=== PATIENT | male | born 1955 | race Caucasian/White ===

== ENCOUNTER 2023-07-15 12:19 | Emergency (ER) | payer BC, SELFPAY ==
[2023-07-15] VITALS (41 sets, daily range): BP systolic 132–174; BP diastolic 75–100; PULSE 70–76; RESP 20; TEMP 36.8; O2SAT 94–97; BMI 39.1
--- NOTE | 2023-07-15 12:36 | CRLHL7_ITS ---
For Patients: As a result of the Cures Act, medical imaging exams and procedure reports are released immediately into your electronic medical record. You may view this report before your referring provider. If you have questions, please contact your health care provider. INDICATION: CHEST PAIN INDICATION: Chest pain. TECHNIQUE: Chest 2 views. COMPARISON: None FINDINGS: Cardiovascular and mediastinum: Heart size and vasculature are normal in caliber and appearance. Mediastinum is within normal limits. Lungs and pleural spaces: Lungs are clear. No sign of infiltrate or mass. No sign of pleural effusion. No pneumothorax. 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 IMPRESSION: Lungs are clear. Dictated by Skyler Valenzuela MD @ 07/15/2023 1:16:10 PM Dictated by: Skyler Valenzuela MD @ 07/15/2023 13:16:19 (Electronically Signed)
--- NOTE | 2023-07-15 12:45 | ED.CHESTPAIN ---
HPI - Chest Pain General Date Seen: 07/15/23 Chief Complaint: Chest Pain Stated Complaint: Chest pain Time Seen by Provider: 07/15/23 12:20 Source: patient Mode of arrival: ambulatory Limitations: no limitations History of Present Illness HPI narrative: Patient is a 68-year-old gentleman who presents here with a 12 hour history of anterior chest discomfort with radiation to his left shoulder left arm, this could woke him up from sleep, he told his boss, who brought him here to the emergency room, he reports in the last 45 minutes he has would drastically improved, before it was a pressure sensation that is basically gotten better. He has no shortness of breath, no radiation to his back. He did take 2 325 mg of aspirin, about 45 minutes ago. No pre-existing history of coronary artery disease but he has lots of risk factors including diabetes, hypertension, obesity, associated with this. Previous history of smoking but does not currently smoke. 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 MD complaint: chest pain Pertinent past history: other (WPW with ablation ) Onset (ago): hour(s) Treatment prior to arrival: none Risk Factors Coronary artery disease risk factors: diabetes, smoking history, hyperlipidemia and hypertension Thoracic aortic dissection risk factors: none Related Data Home Medications Medication Instructions Recorded Confirmed amlodipine 10 mg tablet 10 mg PO DAILY 07/15/23 07/15/23 aspirin 81 mg capsule 81 mg PO DAILY 07/15/23 07/15/23 dapagliflozin propaned 5 1 tab PO DAILY 07/15/23 07/15/23 mg-metformin ER 1,000 mg tablet, ext rel 24hr (Xigduo XR) gabapentin 400 mg capsule 400 mg PO TID 07/15/23 07/15/23 glimepiride 1 mg tablet 1 mg PO DAILY 07/15/23 07/15/23 hydrochlorothiazide 25 mg tablet 25 mg PO DAILY 07/15/23 07/15/23 loratadine 10 mg tablet 10 mg PO DAILY 07/15/23 07/15/23 (Allerclear) losartan 100 mg tablet 100 mg PO DAILY 07/15/23 07/15/23 metformin 500 mg tablet 500 mg PO BID 07/15/23 07/15/23 metoprolol succinate 100 mg 100 mg PO DAILY 07/15/23 07/15/23 capsule sprinkle, ext. release 24 hr naproxen sodium 220 mg capsule 220 mg PO BID PRN 07/15/23 07/15/23 (Aleve) pantoprazole 40 mg tablet,delayed 40 mg PO QAM 07/15/23 07/15/23 release propafenone 150 mg tablet 150 mg PO TID 07/15/23 07/15/23 semaglutide 0.25 mg or 0.5 mg (2 0.25 mg subcut QWEEK 07/15/23 07/15/23 mg/3 mL) subcutaneous pen injector ([employer]) Allergies Allergy/AdvReac Type Severity Reaction Status Date / Time ibuprofen AdvReac Verified 07/15/23 12:26 Review of Systems Status of ROS Reports: 10 or more systems reviewed and unremarkable except as noted in History and below PFSH PFS Social History Smoking Status: Current some day smoker What tobacco products do you use: cigars Do you use any of these nicotine containing products: None Second hand tobacco smoke exposure: No How often do you have a drink containing alcohol: never How often do you have six or more drinks on one occasion: Never AUDIT-C Alcohol total score: 0 Non-prescribed substance use: denies use service: No Exam Narrative Exam Narrative: Very nice gentleman seen in room 6, pupils equal round reactive to light there is no scleral icterus redness is TMs are normal oropharynx normal, JVP impossible, as he has a powers. Chest is good air entry bilaterally with no wheezing crackles noted his heart sounds are normal his abdomen is protuberant enlarged, there is no tenderness to palpation bowel sounds are normal, no CVA tenderness, his lower extremities reveal 1+ pitting edema bilaterally and symmetrical, with no tenderness to palpation, venous stasis to his lower his legs, neurologically intact moving upper lower extremities normally, normal distal pulses. Const Vital Signs, click to edit/add: Vital Signs - 24 hr 07/15/23 12:27 07/15/23 12:28 07/15/23 12:28 Temperature 98.3 F Pulse Rate 76 74 Pulse Rate [Pulse Oximeter] 76 Respiratory Rate 20 Blood Pressure 174/95 H Blood Pressure [Right Upper Arm] 169/100 H Pulse Oximetry 96 96 96 Oxygen Delivery Method Room Air 07/15/23 12:30 07/15/23 12:32 07/15/23 12:36 Temperature Pulse Rate 74 76 Pulse Rate [Pulse Oximeter] Respiratory Rate Blood Pressure 169/100 H Blood Pressure [Right Upper Arm] Pulse Oximetry 97 95 96 Oxygen Delivery Method 07/15/23 12:45 07/15/23 13:01 07/15/23 13:02 Temperature Pulse Rate 74 73 74 Pulse Rate [Pulse Oximeter] Respiratory Rate Blood Pressure 147/80 H Blood Pressure [Right Upper Arm] Pulse Oximetry 96 96 97 Oxygen Delivery Method 07/15/23 13:15 07/15/23 13:30 07/15/23 13:32 Temperature Pulse Rate 73 72 72 Pulse Rate [Pulse Oximeter] Respiratory Rate Blood Pressure 146/84 H Blood Pressure [Right Upper Arm] Pulse Oximetry 96 94 95 Oxygen Delivery Method 07/15/23 13:45 07/15/23 14:00 07/15/23 14:02 Temperature Pulse Rate 70 71 71 Pulse Rate [Pulse Oximeter] Respiratory Rate Blood Pressure 142/76 H Blood Pressure [Right Upper Arm] Pulse Oximetry 95 94 94 Oxygen Delivery Method 07/15/23 14:03 07/15/23 14:04 07/15/23 14:15 Temperature Pulse Rate 72 73 Pulse Rate [Pulse Oximeter] Respiratory Rate Blood Pressure Blood Pressure [Right Upper Arm] Pulse Oximetry 95 96 95 Oxygen Delivery Method Room Air 07/15/23 14:30 07/15/23 14:32 07/15/23 14:45 Temperature Pulse Rate 76 75 75 Pulse Rate [Pulse Oximeter] Respiratory Rate Blood Pressure 144/84 H Blood Pressure [Right Upper Arm] Pulse Oximetry 96 96 96 Oxygen Delivery Method 07/15/23 15:00 07/15/23 15:02 07/15/23 15:15 Temperature Pulse Rate 74 74 73 Pulse Rate [Pulse Oximeter] Respiratory Rate Blood Pressure 150/90 H Blood Pressure [Right Upper Arm] Pulse Oximetry 97 96 95 Oxygen Delivery Method Documenting provider has reviewed patient's vital signs: yes Course Reevaluation(s) Time of Reevaluation #1: 14:42 Reevaluation #1: Patient is hyper T waves have been markedly improved, on repeat EKG. His troponin is 0.10. Which is elevated. This is all consistent with an NSTEMI. His pain is gone away, he is actually asking to go home. I explained to the patient that he should be seen by Cardiology and we should transfer him up there. I would suspect that this is consistent with the either unstable plaque, or partial occlusion. Of a coronary vessel. I will speak to Cardiology, Time of Reevaluation #2: 15:30 Reevaluation #2: Patient continues to be pain-free, continues on IV heparin, EKG shows reassuring normalization of the T-waves, Spoke to from [facility], she accepted the patient with the diagnosis of NSTEMI, we will transfer up to [facility] I discussed this with the patient, he is in agreement with this. Vital Signs Vital signs: Initial Vital Signs Respiratory Effort Normal 07/15/23 12:25 Respiratory Depth Normal 07/15/23 12:25 Respiratory Pattern Normal 07/15/23 12:25 Vital Signs Pulse Rate 76 07/15/23 12:27 Blood Pressure 174/95 H 07/15/23 12:27 Pulse Oximetry 96 07/15/23 12:27 Temperature 98.3 F 07/15/23 12:28 Pulse Rate 73 07/15/23 15:15 Respiratory Rate 20 07/15/23 12:28 Blood Pressure 150/90 H 07/15/23 15:02 Pulse Oximetry 95 07/15/23 15:15 Oxygen Delivery Method Room Air 07/15/23 14:04 Medications Administered Medications: Generic Name Dose Route Start Last Admin Trade Name Freq PRN Reason Stop Dose Admin Heparin Sodium/Dextrose 25,000 unit in 500 mls @ 0 mls/hr 07/15/23 14:15 07/15/23 14:28 Heparin IV 1,000 unit/hr .Q0M ANTHONY 20 mls/hr Administration Protocol Per Protocol Discontinued Medications Generic Name Dose Route Start Last Admin Trade Name Freq PRN Reason Stop Dose Admin Heparin Sodium (Porcine) 4,000 unit 07/15/23 14:04 07/15/23 14:34 Heparin 5,000 Unit/0.5 Ml Inj IVP 07/15/23 14:05 4,000 unit ONCE ONE Administration Sodium Chloride 1,000 mls @ 1,000 mls/hr 07/15/23 12:45 07/15/23 13:24 0.9 % Sodium Chloride 1000 Ml IV 07/15/23 13:44 1,000 mls/hr .Q1H ANTHONY Administration MDM - Chest Pain MDM Narrative Medical decision making narrative: During the evaluation of this patient I considered multiple differential diagnosis is. The life-threatening differential diagnosis include coronary disease/OR, pulmonary embolism, pneumothorax, pneumonia, and aortic dissection. Other differential diagnosis included but were not limited to pericarditis, myocarditis, chest wall pain, GERD, esophageal rupture, rib fracture contusion, pleurisy, as well as other etiologies. Medical Records Data Attestation: I reviewed the patient's medical records. Lab Data Labs: Lab Results 07/15/23 07/15/23 07/15/23 Range/Units 12:15 12:37 13:08 WBC 5.59 (4.50-11.00) K/uL RBC 5.28 (4.30-5.90) m/uL Hgb 15.0 (13.5-17.5) gm/dL Hct 44.8 (37.0-53.0) % MCV 85 (80-100) fL MCH 28 (26-34) pg MCHC 34 (32-36) gm/dL RDW Coeff of [place] 14.4 (11.5-15.5) % Plt Count 141 (140-440) K/uL Neut % (Auto) 67.8 (42.0-72.0) % Lymph % (Auto) 20.6 (20-44) % [place] % (Auto) 8.6 (0.0-11.0) % Eos % (Auto) 2.1 (0.0-7.0) % Baso % (Auto) 0.4 (0.0-3.0) % Neut # (Auto) 3.79 (1.7-7.0) K/uL Lymph # (Auto) 1.15 (0.90-2.90) K/uL [place] # (Auto) 0.50 (0.00-0.90) K/UL Eos # (Auto) 0.12 (0.00-0.50) K/uL Baso # (Auto) 0.02 (0.00-0.30) K/uL Abs Immat Gran (auto) 0.03 (0.00-0.30) K/uL Imm/Tot Granulo (auto) 0.5 % INR 0.93 (0.91-1.10) APTT 33 (23-33) Seconds D-Dimer Quant (PE/DVT) Cancelled Sodium (135-149) mmol/L Potassium (3.6-5.1) mmol/L Chloride (96-114) mmol/L Carbon Dioxide (20-32) mmol/L Anion Gap (7-15) mEq/L BUN (7-30) mg/dL Creatinine (0.5-1.5) mg/dL Estimated Creat Clear Estimated GFR ml/min Glucose (60-115) mg/dL Calcium (8.4-10.6) mg/dL Total Bilirubin (0.1-1.5) mg/dL Direct Bilirubin (0.0-0.5) mg/dL AST (12-35) U/L ALT (4-50) U/L Alkaline Phosphatase (40-150) U/L Troponin I (0.01-0.04) ng/mL C-Reactive Protein (0.5-1.0) mg/dL NT-Pro-B Natriuret Pep pg/mL Total Protein (6.0-8.3) g/dL Albumin (3.3-5.0) g/dL SARS-CoV-2 (PCR) Negative SARS-CoV-2 (Negative) Influenza Type A (PCR) Negative PCR FLU A (Negative) Influenza Type B (PCR) Negative PCR FLU B (Negative) RSV (PCR) Negative PCR RSV (Negative) Lab Acknowledgement POC Troponin I 0.05 H (0.01-0.04) ng/ml 07/15/23 07/15/23 07/15/23 Range/Units 13:08 13:24 14:10 WBC (4.50-11.00) K/uL RBC (4.30-5.90) m/uL Hgb (13.5-17.5) gm/dL Hct (37.0-53.0) % MCV (80-100) fL MCH (26-34) pg MCHC (32-36) gm/dL RDW Coeff of [place] (11.5-15.5) % Plt Count (140-440) K/uL Neut % (Auto) (42.0-72.0) % Lymph % (Auto) (20-44) % [place] % (Auto) (0.0-11.0) % Eos % (Auto) (0.0-7.0) % Baso % (Auto) (0.0-3.0) % Neut # (Auto) (1.7-7.0) K/uL Lymph # (Auto) (0.90-2.90) K/uL [place] # (Auto) (0.00-0.90) K/UL Eos # (Auto) (0.00-0.50) K/uL Baso # (Auto) (0.00-0.30) K/uL Abs Immat Gran (auto) (0.00-0.30) K/uL Imm/Tot Granulo (auto) % INR (0.91-1.10) APTT (23-33) Seconds D-Dimer Quant (PE/DVT) 0.31 Sodium 133 L (135-149) mmol/L Potassium 4.9 (3.6-5.1) mmol/L Chloride 99 (96-114) mmol/L Carbon Dioxide 23 (20-32) mmol/L Anion Gap 11 (7-15) mEq/L BUN 19 (7-30) mg/dL Creatinine 1.3 (0.5-1.5) mg/dL Estimated Creat Clear 58.73 Estimated GFR 60 ml/min Glucose 256 H (60-115) mg/dL Calcium 9.4 (8.4-10.6) mg/dL Total Bilirubin 0.9 (0.1-1.5) mg/dL Direct Bilirubin 0.3 (0.0-0.5) mg/dL AST 44 H (12-35) U/L ALT 50 (4-50) U/L Alkaline Phosphatase 60 (40-150) U/L Troponin I 0.10 H* (0.01-0.04) ng/mL C-Reactive Protein 0.7 (0.5-1.0) mg/dL NT-Pro-B Natriuret Pep 268 pg/mL Total Protein 7.8 (6.0-8.3) g/dL Albumin 4.5 (3.3-5.0) g/dL SARS-CoV-2 (PCR) (Negative) Influenza Type A (PCR) (Negative) Influenza Type B (PCR) (Negative) RSV (PCR) (Negative) Lab Acknowledgement Test Added POC Troponin I 0.07 H (0.01-0.04) ng/ml ECG Data Attestation: I personally reviewed and interpreted this ECG as follows: Interpretation: EKG shows normal sinus rhythm, with a ventricular rate of 78, he has hyperacute T-waves noted across the precordial leads, with slight [address] elevation, Discharge Plan Discharge Clinical Impression: Elevated troponin I level, Acute non-ST elevation myocardial infarction (NSTEMI) Patient Disposition: Xfer Other Activity Level: Light activity Prescriptions: No Action Ozempic 0.25 mg or 0.5 mg (2 mg/3 mL) pen injector 0.25 mg subcut QWEEK Rx Instructions: for 4 weeks gabapentin 400 mg capsule 400 mg PO TID amlodipine 10 mg tablet 10 mg PO DAILY glimepiride 1 mg tablet 1 mg PO DAILY hydrochlorothiazide 25 mg tablet 25 mg PO DAILY Xigduo XR 5-1,000 mg tablet, IR - ER, biphasic 24hr 1 tab PO DAILY propafenone 150 mg tablet 150 mg PO TID Rx Instructions: space evenly during waking hours loratadine [Allerclear] 10 mg tablet 10 mg PO DAILY metformin 500 mg tablet 500 mg PO BID metoprolol succinate 100 mg capsule,sprinkle,ER 24hr 100 mg PO DAILY losartan 100 mg tablet 100 mg PO DAILY pantoprazole 40 mg tablet,delayed release (DR/EC) 40 mg PO QAM aspirin 81 mg capsule 81 mg PO DAILY naproxen sodium [Aleve] 220 mg capsule 220 mg PO BID PRN Stand Alone Forms: [facility] Info Instructions
[2023-07-15 13:22] LABS: Troponin, Point-of-Care* 0.05 ng/ml (0.01-0.04)
[2023-07-15] MEDS: 0.9 % SODIUM CHLORIDE 1000 ml 1,000 ML IV (13:24)
[2023-07-15 13:29] LABS: Basophils Absolute Auto 0.02 K/uL (0.00-0.30); Basophils Percent Auto 0.4 % (0.0-3.0); Eosinophils Absolute Auto 0.12 K/uL (0.00-0.50); Eosinophils Percent Auto 2.1 % (0.0-7.0); Hematocrit 44.8 % (37.0-53.0); Immature Granulocytes Abs Auto 0.03 K/uL (0.00-0.30); Immature Granulocytes Pct Auto 0.5 %; Lymphocytes Absolute Auto 1.15 K/uL (0.90-2.90); Lymphocytes Percent Auto 20.6 % (20-44); Mean Corpuscular HGB Conc 34 gm/dL (32-36); Mean Corpuscular Hemoglobin 28 pg (26-34); Mean Corpuscular Volume 85 fL (80-100); Monocytes Percent Auto 8.6 % (0.0-11.0); Neutrophils Absolute Auto 3.79 K/uL (1.7-7.0); Neutrophils Percent Auto 67.8 % (42.0-72.0); Platelet Count* 141 K/uL (140-440); RDW Coefficient of Variation % 14.4 % (11.5-15.5); Red Blood Count 5.28 m/uL (4.30-5.90); White Blood Count* 5.59 K/uL (4.50-11.00)
[2023-07-15 13:33] LABS: Slide Review Reflex No
[2023-07-15 13:41] LABS: Albumin* 4.5 g/dL (3.3-5.0); Chloride* 99 mmol/L (96-114); INR 0.93 (0.91-1.10); Potassium* 4.9 mmol/L (3.6-5.1); Sodium* 133 mmol/L (135-149)
[2023-07-15 13:42] LABS: Partial Thromboplastin Time* 33 Seconds (23-33)
[2023-07-15 13:43] LABS: Creatinine* 1.3 mg/dL (0.5-1.5); Est. Creatinine Clearance* 58.73; Estimated Glomerular Filt Rate 60 ml/min
[2023-07-15 13:44] LABS: PCR FLU A Negative PCR FLU A (Negative); PCR FLU B Negative PCR FLU B (Negative); PCR RSV Negative PCR RSV (Negative)
[2023-07-15 13:44] LABS: Alanine Aminotransferase* 50 U/L (4-50); Alkaline Phosphatase* 60 U/L (40-150); Anion Gap 11 mEq/L (7-15); Aspartate Amino Transferase* 44 U/L (12-35); Bilirubin Direct* 0.3 mg/dL (0.0-0.5); Bilirubin Total* 0.9 mg/dL (0.1-1.5); Blood Urea Nitrogen* 19 mg/dL (7-30); Carbon Dioxide* 23 mmol/L (20-32); Total Protein* 7.8 g/dL (6.0-8.3)
[2023-07-15 13:45] LABS: Calcium* 9.4 mg/dL (8.4-10.6); Glucose* 256 mg/dL (60-115)
[2023-07-15 13:46] LABS: D Dimer Quantitative* 0.31 ug/ml (0.00-0.50)
[2023-07-15 13:47] LABS: C Reactive Protein* 0.7 mg/dL (0.5-1.0)
[2023-07-15 13:53] LABS: SARS PCR* Negative SARS-CoV-2 (Negative)
[2023-07-15 13:58] LABS: NT Pro B Type NatriureticPept* 268 pg/mL
[2023-07-15 14:26] LABS: Troponin, Point-of-Care* 0.07 ng/ml (0.01-0.04)
[2023-07-15] MEDS: HEPARIN 25,000 UNIT/500 ML BAG 20 UNIT IV (14:28)
[2023-07-15] MEDS: HEPARIN 5,000 UNIT/0.5 ML INJ 4000 UNIT IVP (14:34)
== END 2023-07-15 15:40 | disposition other institution (70) ==
PROVIDERS: Emergency Provider Family Medicine
DX: I21.4 Non-ST elevation (NSTEMI) myocardial infarction (principal); R79.89 Other specified abnormal findings of blood chemistry
CPT/HCPCS: 36415; 71046; 80048; 80076; 83880; 84484; 85025; 85379; 85610; 85730; 86140; 87631; 93005; 94761; 99284; 99285; J1644; J7030

== ENCOUNTER 2023-07-15 15:40 | Outpatient (CLI) | payer BC, SELFPAY | END 2023-07-15 15:41 | disposition home or self-care (01) | LOC: AMB 07-17 09:44 | PROVIDERS: Visit Provider Family Medicine | DX: R07.89 Other chest pain (principal) | CPT/HCPCS: A0425; A0427 ==